=== PATIENT | male | born 1965 | race Caucasian/White ===

== ENCOUNTER → 2018-06-16 | Outpatient (CLI) | payer OTHER ==
[2018-06-16 17:59] LABS: BLOOD UREA NITROGEN 14 mg/dl (7-18); CARBON DIOXIDE 28 mmol/L (21-32); CREATININE 0.85 mg/dl (0.60-1.40); GLUCOSE 133 mg/dl (70-99); POTASSIUM 3.7 mmol/L (3.5-5.1); SODIUM 138 mmol/L (136-145)
[2018-06-17 06:13] LABS: HEMOGLOBIN A1C 6.4 % (4.5-5.6)
== END | disposition home or self-care (01) ==
LOC: C.LABMFLN 16:18
PROVIDERS: ATTEND Family Medicine
DX: Z00.00 Encounter for general adult medical examination without abnormal findings (principal); M17.12 Unilateral primary osteoarthritis, left knee